=== PATIENT | female | born 1925 | race Caucasian/White ===

== ENCOUNTER → 2016-05-24 | Outpatient (REF) | payer MEDICARE, BC, OTHER ==
[~2016-05-24] MED LIST: /HCTZ25TA PO; /RALO60TA PO; ASPI1TAB PO; ASPI81TA51 PO; CALCCHW19 PO; CALCTAB68 PO; COENZYME Q10 PO; DORZ2SOL5 OU; DORZOLAMIDE OU; EFFEXOR XR PO; EVIS1TAB PO; GLUCOSAMINE PO; HYDR25TAB PO; INDA125TA PO; LISI-542 PO; LISI10TA4 PO; LISI5TAB PO; MULTTAB4 PO; NAME10TA PO; POTA10CA PO; REFR0.5D8 OU; REST0.05 OU; TRAV04OPD OU; TYLE325T5 PO; VENL150C43 PO; VENL75TA3 PO; VITA500C24 PO; VITAD1000T PO; [UNRECOGNIZED DRUG - OTHER] PO; [UNRECOGNIZED DRUG - OTHER] PO
[2016-05-24 09:21] LABS: CALCIUM LEVEL 8.1 MG/DL (8.8-10.2); CREATININE FOR GFR 0.98 MG/DL (0.55-1.02); POTASSIUM SERUM 3.8 MEQ/L (3.5-5.1)
== END | disposition home or self-care (01) ==
LOC: SKLAB8 07:00
PROVIDERS: ATTEND Family Medicine
DX: I10 Essential (primary) hypertension (principal)

== ENCOUNTER → 2016-07-19 | Outpatient (REF) | payer MEDICARE, BC, OTHER ==
[~2016-07-19] MED LIST changes: +MULT1TAB18 PO
[2016-07-19 11:00] LABS: MEAN CORPUSCULAR HEMOGLOBIN 31.4 pg (27.0-33.0); MEAN CORPUSCULAR HGB CONC 34.8 g/dl (32.0-36.5); MEAN CORPUSCULAR VOLUME 90.2 fl (80.0-96.0); PLATELET COUNT, AUTOMATED 160 k/mm3 (150-450)
[2016-07-19 11:11] LABS: CALCIUM LEVEL 8.4 MG/DL (8.8-10.2); CREATININE FOR GFR 0.99 MG/DL (0.55-1.02); GLOMERULAR FILTRATION RATE 56.4 (>32); POTASSIUM SERUM 3.4 MEQ/L (3.5-5.1)
[2016-07-19 12:06] LABS: BANDS 6 % (< 11); EOSINOPHILS 2 % (0-5)
[2016-07-19 12:07] LABS: ANISOCYTOSIS 1+; POIKILOCYTOSIS 1+
== END ==
LOC: SKLAB8 08:00
PROVIDERS: ATTEND Family Medicine
DX: I10 Essential (primary) hypertension (principal)

== ENCOUNTER 2016-07-29 16:43 | Emergency (ER) | payer BC, MEDICARE, OTHER ==
[~2016-07-29] VITALS: Ht 170.2 cm; Wt 71.4 kg
[~2016-07-29 16:43] MED LIST changes: -MULT1TAB18 PO
[2016-07-29] MEDS ORDERED: MULT1TAB18 PO (17:23)
[2016-07-29 18:10] LABS: BASO % 0.2 % (0.0-1.0); EOS # 0.2 K/mm3 (0.0-0.50); EOS % 3.7 % (0.0-3.0); LARGE UNSTAINED CELL # 0.1 K/mm3 (0.0-0.4); LARGE UNSTAINED CELL % 1.4 % (0.0-4.0); LYMPH # 0.7 K/mm3 (1.5-4.5); LYMPH % 13.6 % (24.0-44.0); MEAN CORPUSCULAR HGB CONC 31.4 g/dl (32.0-36.5); MEAN CORPUSCULAR VOLUME 92.1 fl (80.0-96.0); MONO # 0.4 K/mm3 (0.0-0.8); MONO % 7.5 % (0.0-5.0); NEUTROPHILS # 3.6 K/mm3 (1.8-7.7); NEUTROPHILS % 73.7 % (36.0-66.0); PLATELET COUNT, AUTOMATED 169 k/mm3 (150-450); WHITE BLOOD COUNT 4.8 K/mm3 (4.0-10.0)
[2016-07-29 18:17] LABS: INR 1.08
[2016-07-29 18:32] LABS: CALCIUM LEVEL 7.8 MG/DL (8.8-10.2); CREATININE FOR GFR 1.11 MG/DL (0.55-1.02); GLOMERULAR FILTRATION RATE 49.4 (>32); POTASSIUM SERUM 3.2 MEQ/L (3.5-5.1)
--- NOTE | 2016-07-29 18:36 | REP ---
Clinical: Poor circulation to the right lower extremity . Technique: Jacob scale and color Doppler evaluation using linear high frequency transducer. Findings: Ultrasound examination of the right and left lower extremity deep venous structures from the common femoral vein to the popliteal vein demonstrates normal compressibility flow and wave patterns in response to respiration and augmentation. There is no evidence for deep venous thrombosis. Impression: No evidence for deep venous thrombosis of the bilateral lower extremities. Signed by Paulo Finney MD 07/29/2016 06:27 P
[2016-07-29 19:23] VITALS: BP 141/91
== END 2016-07-29 19:38 | disposition home or self-care (01) ==
LOC: EDBD 16:43 → M ED 18:05
DX: I99.8 Other disorder of circulatory system (principal); I10 Essential (primary) hypertension; Z79.899 Other long term (current) drug therapy; Z79.82 Long term (current) use of aspirin; Z88.8 Allergy status to other drugs, medicaments and biological substances; Z87.891 Personal history of nicotine dependence

== ENCOUNTER → 2016-09-20 | Outpatient (REF) | payer MEDICARE, BC, OTHER, MEDICAID ==
[~2016-09-20] MED LIST changes: +MULT1TAB18 PO
[2016-09-20 10:13] LABS: CALCIUM LEVEL 8.1 MG/DL (8.8-10.2); GLOMERULAR FILTRATION RATE 55.7 (>32); POTASSIUM SERUM 3.8 MEQ/L (3.5-5.1)
== END ==
LOC: SKLAB8 08:00
PROVIDERS: ATTEND Family Medicine
DX: I10 Essential (primary) hypertension (principal)

== ENCOUNTER → 2016-10-18 | Outpatient (REF) | payer MEDICARE, BC, MEDICAID ==
[2016-10-18 10:32] LABS: BASO % 0.5 % (0.0-1.0); EOS # 0.2 K/mm3 (0.0-0.50); EOS % 4.2 % (0.0-3.0); LARGE UNSTAINED CELL # 0.1 K/mm3 (0.0-0.4); LARGE UNSTAINED CELL % 1.4 % (0.0-4.0); LYMPH # 0.7 K/mm3 (1.5-4.5); MEAN CORPUSCULAR HEMOGLOBIN 29.2 pg (27.0-33.0); MEAN CORPUSCULAR HGB CONC 32.1 g/dl (32.0-36.5); MEAN CORPUSCULAR VOLUME 90.9 fl (80.0-96.0); MONO # 0.3 K/mm3 (0.0-0.8); MONO % 6.7 % (0.0-5.0); NEUTROPHILS # 3.8 K/mm3 (1.8-7.7); NEUTROPHILS % 75.2 % (36.0-66.0); PLATELET COUNT, AUTOMATED 183 k/mm3 (150-450); RED CELL DISTRIBUTION WIDTH 14.2 % (11.5-14.5)
== END ==
LOC: SKLAB8 07:00
PROVIDERS: ATTEND Family Medicine
DX: I10 Essential (primary) hypertension (principal)

== ENCOUNTER → 2016-11-22 | Outpatient (REF) | payer MEDICARE, BC, MEDICAID ==
[2016-11-22 09:09] LABS: ANION GAP 6 MEQ/L (8-16); BLOOD UREA NITROGEN 22 MG/DL (7-18); CALCIUM LEVEL 8.7 MG/DL (8.8-10.2); CARBON DIOXIDE LEVEL 32 MEQ/L (21-32); CHLORIDE LEVEL 105 MEQ/L (98-107); CREATININE FOR GFR 0.92 MG/DL (0.55-1.02); GLOMERULAR FILTRATION RATE > 60.0 (>32); GLUCOSE, FASTING 82 MG/DL (83-110); POTASSIUM SERUM 3.4 MEQ/L (3.5-5.1); SODIUM LEVEL 143 MEQ/L (136-145)
== END ==
LOC: SKLAB8 07:00
PROVIDERS: ATTEND Family Medicine
DX: I10 Essential (primary) hypertension (principal)

== ENCOUNTER → 2017-01-24 | Outpatient (REF) | payer MEDICARE, BC, MEDICAID ==
[2017-01-24 09:21] LABS: BASO % 0.3 % (0.0-1.0); EOS # 0.1 K/mm3 (0.0-0.50); LARGE UNSTAINED CELL # 0.1 K/mm3 (0.0-0.4); LYMPH # 0.6 K/mm3 (1.5-4.5); LYMPH % 13.8 % (24.0-44.0); MEAN CORPUSCULAR HGB CONC 33.6 g/dl (32.0-36.5); MEAN CORPUSCULAR VOLUME 89.1 fl (80.0-96.0); MONO # 0.3 K/mm3 (0.0-0.8); NEUTROPHILS # 3.4 K/mm3 (1.8-7.7); NEUTROPHILS % 74.8 % (36.0-66.0); PLATELET COUNT, AUTOMATED 190 k/mm3 (150-450); WHITE BLOOD COUNT 4.6 K/mm3 (4.0-10.0)
[2017-01-24 09:22] LABS: CALCIUM LEVEL 8.7 MG/DL (8.8-10.2); CREATININE FOR GFR 1.04 MG/DL (0.55-1.02); GLOMERULAR FILTRATION RATE 53.1 (>32)
== END ==
LOC: SKLAB8 07:00
PROVIDERS: ATTEND Family Medicine
DX: I10 Essential (primary) hypertension (principal); I48.91 Unspecified atrial fibrillation; Z79.899 Other long term (current) drug therapy; F03.90 Unspecified dementia, unspecified severity, without behavioral disturbance, psychotic disturbance, mood disturbance, and anxiety

== ENCOUNTER → 2017-03-21 | Outpatient (REF) | payer MEDICARE, BC, MEDICAID ==
[2017-03-21 09:44] LABS: CALCIUM LEVEL 8.7 MG/DL (8.8-10.2); CREATININE FOR GFR 1.02 MG/DL (0.55-1.02); GLOMERULAR FILTRATION RATE 54.3 (>32)
== END ==
LOC: SKLAB8 07:00
PROVIDERS: ATTEND Family Medicine
DX: I10 Essential (primary) hypertension (principal)

== ENCOUNTER → 2017-04-25 | Outpatient (REF) | payer MEDICARE, BC, MEDICAID ==
[2017-04-25 09:29] LABS: BASO % 0.4 % (0.0-1.0); EOS # 0.3 10^3/uL (0.0-0.50); EOS % 5.3 % (0.0-3.0); IMMATURE GRANULOCYTE % 0.2 % (0-0); LYMPH # 0.7 10^3/uL (1.5-4.5); LYMPH % 14.4 % (24.0-44.0); MEAN CORPUSCULAR HEMOGLOBIN 28.9 pg (27.0-33.0); MEAN CORPUSCULAR VOLUME 90.4 fl (80.0-96.0); MONO # 0.4 10^3/uL (0.0-0.8); MONO % 8.6 % (0.0-5.0); NEUTROPHILS # 3.7 10^3/uL (1.8-7.7); NEUTROPHILS % 71.1 % (36.0-66.0); PLATELET COUNT, AUTOMATED 212 10^3/uL (150-450); RED CELL DISTRIBUTION WIDTH 14.5 % (11.5-14.5); WHITE BLOOD COUNT 5.1 10^3/uL (4.0-10.0)
== END ==
LOC: SKLAB8 07:00
PROVIDERS: ATTEND Family Medicine
DX: I10 Essential (primary) hypertension (principal)

== ENCOUNTER → 2017-05-04 | Outpatient (REF) | payer MEDICARE, MEDICAID, BC | LOC: SKLAB8 12:46 | DX: R05 Cough (principal) | CPT/HCPCS: 87633 ==

== ENCOUNTER 2017-05-20 08:42 | Outpatient (REF) | payer MEDICARE, MEDICAID ==
[2017-05-23 10:21] LABS: ANION GAP 8 MEQ/L (8-16); BLOOD UREA NITROGEN 21 MG/DL (7-18); CALCIUM LEVEL 8.8 MG/DL (8.8-10.2); CARBON DIOXIDE LEVEL 33 MEQ/L (21-32); CHLORIDE LEVEL 104 MEQ/L (98-107); CREATININE FOR GFR 1.02 MG/DL (0.55-1.02); GLOMERULAR FILTRATION RATE 54.3 (>32); GLUCOSE, FASTING 140 MG/DL (83-110); POTASSIUM SERUM 3.7 MEQ/L (3.5-5.1); SODIUM LEVEL 145 MEQ/L (136-145)
== END 2017-05-23 ==
LOC: SKLAB8 08:42
DX: I10 Essential (primary) hypertension (principal)
CPT/HCPCS: 36415

== ENCOUNTER 2017-06-28 11:04 | Emergency (ER) | payer MEDICARE, MEDICAID ==
[2017-06-28 11:38] LABS: BASO % 0.2 % (0.0-1.0); EOS # 0.1 10^3/uL (0.0-0.50); EOS % 0.8 % (0.0-3.0); HEMATOCRIT 46.8 % (36.0-47.0); HEMOGLOBIN 15.3 g/dl (12.0-16.0); IMMATURE GRANULOCYTE % 0.4 % (0-3.0); LYMPH % 9.1 % (24.0-44.0); MEAN CORPUSCULAR HEMOGLOBIN 28.8 pg (27.0-33.0); MEAN CORPUSCULAR HGB CONC 32.7 g/dl (32.0-36.5); MEAN CORPUSCULAR VOLUME 88.1 fl (80.0-96.0); MONO # 0.9 10^3/uL (0.0-0.8); MONO % 8.5 % (0.0-5.0); NEUTROPHILS # 8.4 10^3/uL (1.8-7.7); PLATELET COUNT, AUTOMATED 173 10^3/uL (150-450); RED BLOOD COUNT 5.31 10^6/uL (4.00-5.40); RED CELL DISTRIBUTION WIDTH 14.9 % (11.5-14.5); WHITE BLOOD COUNT 10.4 10^3/uL (4.0-10.0)
[2017-06-28 11:53] LABS: ALBUMIN 2.9 GM/DL (3.2-5.2); ALBUMIN/GLOBULIN RATIO 0.62 (1.00-1.93); ALKALINE PHOSPHATASE 61 U/L (45-117); ALT/SGPT 109 U/L (12-78); ANION GAP 5 MEQ/L (8-16); AST/SGOT 77 U/L (7-37); BILIRUBIN,DIRECT < 0.1 MG/DL (0.0-0.2); BILIRUBIN,TOTAL 0.4 MG/DL (0.2-1.0); BLOOD UREA NITROGEN 44 MG/DL (7-18); CALCIUM LEVEL 8.7 MG/DL (8.8-10.2); CARBON DIOXIDE LEVEL 31 MEQ/L (21-32); CHLORIDE LEVEL 113 MEQ/L (98-107); CREATININE FOR GFR 1.23 MG/DL (0.55-1.30); GLOMERULAR FILTRATION RATE 43.8 (>32); GLUCOSE, FASTING 136 MG/DL (70-100); POTASSIUM SERUM 3.6 MEQ/L (3.5-5.1); SODIUM LEVEL 149 MEQ/L (136-145); TOTAL PROTEIN 7.6 GM/DL (6.4-8.2)
[2017-06-28 12:01] LABS: LACTIC ACID SEPSIS PROTOCOL 2.7 MMOL/L (0.4-2.0)
[2017-06-28 13:04] LABS: TROPONIN I 0.99 NG/ML (< 0.10)
[2017-06-28 13:06] LABS: CK-MB VALUE MASS 2.8 NG/ML (0.0-3.6); CPK CREATINE PHOSPHOKINASE 43 U/L (26-192); MB/CK RELATIVE INDEX 6.51 (< OR =4)
[2017-06-28 13:07] LABS: NT-PRO BNP 3571 PG/ML (<450)
[2017-06-28] MEDS: FUROSEMIDE 40 MG/4 ML VIAL (J1940) IV (13:30)
[2017-06-28] MEDS: IPRATROPIUM 0.5MG/ALBUTEROL 2.5MG INH SOL UD 3ML (DUONEB)(J7620) NEB ×3 (14:26→15:01)
== END 2017-06-28 15:22 | disposition home or self-care (01) ==
LOC: M ED 11:04
DX: I21.4 Non-ST elevation (NSTEMI) myocardial infarction (principal); I50.9 Heart failure, unspecified; I48.91 Unspecified atrial fibrillation; I44.4 Left anterior fascicular block; I10 Essential (primary) hypertension; H40.9 Unspecified glaucoma; Z79.82 Long term (current) use of aspirin; Z79.899 Other long term (current) drug therapy; Z88.6 Allergy status to analgesic agent
CPT/HCPCS: J1940